=== PATIENT | male | born 1955 | race Caucasian/White ===

== ENCOUNTER 2022-02-15 12:11 | Emergency (ER) | payer OTHER ==
[2022-02-15 13:52] LABS: BASOPHIL 0.5 % (0-2); EOSINOPHIL 1.4 % (0-7); HCT 43.6 % (42.0-52.0); HGB 14.7 g/dl (13.2-18.0); LYMPHOCYTE 14.4 % (15-48); MCH 33.6 pg (25.0-31.0); MCHC 33.7 g/dL (32.0-36.0); MCV 99.8 fL (78.0-100.0); MONOCYTE 12.1 % (0-12); MPV 9.5 fL (6.0-9.5); NEUTROPHIL 69.7 % (41-80); NRBC 0; PLT 199 K/uL (150-400); RBC 4.37 M/uL (4.70-6.00); RDW 12.8 % (11.5-14.0); WBC 7.9 K/uL (4.0-10.5)
[2022-02-15 14:10] LABS: CREATININE 0.93 mg/dL (0.67-1.17); POTASSIUM 4.3 mmol/L (3.5-5.1)
== END 2022-02-15 14:46 | disposition home or self-care (01) ==
LOC: FER 12:11
PROVIDERS: Nurse Practitioner Family
DX: I10 Essential (primary) hypertension (principal); Z79.899 Other long term (current) drug therapy
CPT/HCPCS: 36415; 80048; 85025; 99283